=== PATIENT | female | born 1995 | race Caucasian/White ===

== ENCOUNTER 2024-02-09 16:40 | Emergency (ER) | payer BC ==
[2024-02-09 17:08] VITALS: O2SAT 100
[2024-02-09] MEDS: oxyCODONE 5 MG TABLET PO STA (18:51)
[2024-02-09] MEDS: CHERRY SYRUP 10 ML UDC PO ONE (18:51)
[2024-02-09] MEDS: DEXAMETHASONE 10 MG/ML VIAL PO STA (18:51)
--- NOTE | 2024-02-09 19:03 | ED Physician Documentation ---
PD HPI BACK PAIN - Stated complaint Stated Complaint: BACK PX - Chief complaint Chief Complaint: Back Pain - History obtained from History obtained from: Patient - History of Present Illness Timing - onset: How many weeks ago (6) Timing - duration: Weeks (6) Location: Lower, Left Quality: Pain, Sharp, Similar to prior episodes. No: Spasm Associated symptoms: No: Fever, Weakness, Numbness, Incontinent of urine, Unable to urinate, Hematuria, Incontinent of stool Improves with: Rest Worsened by: Other (standing) Contributing factors: No: Lifting, Twisting, Trauma, Anticoagulated, Cancer, IVDA - Additional information Additional information: Patient is a 28-year-old female presents to the emergency department back pain for the past 6 weeks. She states that she had a herniated disc as a teenager. She states that that the pain radiates down the left leg, worse with standing. No spasm. The pain is sharp and shooting. No weakness, numbness, incontinence. Better with rest, worse with standing. She went to an urgent care and was given Robaxin and prednisone but is still having pain. PD PAST MEDICAL HISTORY - Past Medical History Past Medical History: Yes Cardiovascular: None Respiratory: None Neuro: None Endocrine/Autoimmune: None GI: None [employer]: None : None HEENT: None Psych: Depression, Anxiety, ADD/ADHD Musculoskeletal: None Derm: None - Past Surgical History Past Surgical History: Yes Ortho: Spine surgery - Present Medications Home Medications: Ambulatory Orders Medication Instructions Recorded Confirmed methylPREDNISolone [Medrol] 4 mg PO DAILY #1 each 02/09/24 oxyCODONE [Roxicodone] 5 - 10 mg PO Q6H PRN #20 tablet 02/09/24 MDD 6 - Allergies Allergies/Adverse Reactions: Allergies Allergy/AdvReac Type Severity Reaction Status Date / Time No Known Drug Allergies Allergy Verified 02/09/24 16:50 - Social History Does the pt smoke?: No Smoking Status: Never smoker Does the pt drink ETOH?: No Does the pt have substance abuse?: No - Immunizations Immunizations are current?: Yes - POLST Patient has POLST: No PD ED PE NORMAL - Vitals Vital signs reviewed: Yes - General General: Alert and oriented X 3, No acute distress - HEENT HEENT: Moist mucous membranes - Neck Neck: Supple, no meningeal sign - Cardiac Cardiac: RRR, Strong equal pulses - Respiratory Respiratory: No respiratory distress, Clear bilaterally - Abdomen Abdomen: Soft, Non tender, Non distended - Back Back: No spinal TTP (No midline tenderness palpation or percussion. No step-off or deformity.) - Derm Derm: Warm and dry - Extremities Extremities: No edema, No calf tenderness / cord - Neuro Neuro: Alert and oriented X 3, No motor deficit, No sensory deficit, Other (Normal bilateral lower extremity patellar and ankle jerk reflexes. Normal great toe extension bilaterally. no saddle anesthesia) - Psych Psych: Normal mood, Normal affect Results - Vitals Vitals: Vital Signs - 24 hr 02/09/24 02/09/24 16:51 19:09 Temperature 36.8 C 36.5 C Heart Rate 90 88 Respiratory 16 16 Rate Blood Pressure 140/90 H 128/88 H O2 Saturation 100 100 Oxygen O2 Source Room air PD Medical Decision Making - ED course Complexity details: reviewed results, re-evaluated patient, considered differential (No cauda equina, no spinal epidural abscess, no fracture, no aortic dissection or evidence of aneursym rupture), d/w patient ED course: Patient with what appears to be sciatica of the left side. No evidence of cauda equina, epidural abscess. Ongoing for the past 6 weeks. No indication for emergent imaging. No IV drug use. No fevers. No trauma. No chills. We will change her prednisone to Medrol to see if this works better for her. Will also prescribe pain medication for home. Recommend she follow-up with her PCP to discuss an MRI and physical therapy. Patient counseled regarding signs and symptoms for which I believe and urgent re-evaluation would be necessary. Patient with good understanding of and agreement to plan and is comfortable going home at this time This document was made in part using voice recognition software. While efforts are made to proofread this document, sound alike and grammatical errors may occur. Departure - Departure Disposition: Home, Self Care Clinical Impression: Sciatica Qualifiers: Laterality: left Qualified Code(s): M54.32 - Sciatica, left side Condition: Good Instructions: ED Sciatica Follow-Up: your,doctor this week [Other] Prescriptions: methylPREDNISolone [Medrol] 4 mg PO DAILY #1 each oxyCODONE [Roxicodone] 5 - 10 mg PO Q6H PRN #20 tablet MDD 6 PRN Reason: pain Comments: Your prescription was sent to [facility] in [place] it as we discussed you likely need an MRI of your back. Please contact your doctor tomorrow to discuss this and see if they will put in a referral for you. They may want to send you to physical therapy as well. I would stop the prednisone and we will trial you on Medrol instead to see if this works better for your back. I am prescribing a short course of narcotic pain medication for you. These are potentially dangerous and addictive medications that should be used carefully. These medications may constipate you. Take an [id number] stool softener (docusate) twice daily with plenty of water while taking these medications. If you go 24 hours without a bowel movement, take [id number] miralax, per package instructions. Do not drink or drive while taking these medications. If you received narcotic or sedating medications while in the emergency department, do not drive for 24 hours. Store this medication in a safe, secure place and out of reach of children. It is a violation of federal law to give or sell this medication to another person or to use in a manner other than prescribed. The ED will not refill narcotic prescriptions, including prescriptions lost or stolen. To dispose of unwanted medications: 1. [facility] [address] in [place] has a medication drop box. They accept prescription medications (in pill form) Saturday through Saturday 9:00 a.m. to 5:00 p.m. 2. [facility] [employer] accepts prescription medications (in pill form only) for disposal year round. Call for more information. 3. Contact the [facility] for the next [facility] sponsored prescription drug collection event. , [phone], or [phone]; Discharge Date/Time: 02/09/24 19:08
[2024-02-09 19:12] VITALS: BP 128/88
== END 2024-02-09 19:08 | disposition home or self-care (01) ==
LOC: ED 16:40
DX: M54.32 Sciatica, left side (principal)
CPT/HCPCS: 99283; 99284; A9270